=== PATIENT | male | born 1955 | race Caucasian/White ===

== ENCOUNTER 2020-08-16 08:05 | Outpatient (NON) | payer MEDICARE, SELFPAY ==
[2020-08-16 22:30] LABS: SARS-CoV-2 RNA PCR Negative
== END 2020-08-16 08:06 ==
PROVIDERS: PCP Family Medicine; Visit Provider Family Medicine
DX: Z20.828 Contact with and (suspected) exposure to other viral communicable diseases (principal)
CPT/HCPCS: 87635; C9803; U0003

== ENCOUNTER 2022-05-04 09:22 | Outpatient (CLI) | payer MEDICARE, SELFPAY ==
[2022-05-04 10:11] LABS: Hemoglobin A1C 6.3 % (<5.7)
[2022-05-04 10:12] LABS: Anion Gap 8 mmol/L (8-16); Blood Urea Nitrogen 15 mg/dL (9-20); Carbon Dioxide 27 mmol/L (22-30); Chloride 103 mmol/L (98-107); Estimated Glomerular Filt Rate > 60; Glucose 122 mg/dL (65-110); Potassium 3.9 mmol/L (3.4-5.0); Sodium 138 mmol/L (137-145)
== END 2022-05-04 09:23 | disposition home or self-care (01) ==
PROVIDERS: PCP Family Medicine; Visit Provider Physician Assistant
DX: R73.03 Prediabetes (principal)
CPT/HCPCS: 36415; 80048; 83036

== ENCOUNTER 2022-10-12 01:01 | Day surgery (SDC) | payer MEDICARE, SELFPAY ==
[2022-10-01 10:11] VITALS: BMI 31.6
--- NOTE | 2022-10-09 20:54 | PM.HPGS ---
History of Present Illness History of Present Illness Consent: Risks, benefits, and alternatives have been discussed and questions answered. Patient agrees to proceed with procedure. Chief complaint: neoplasm screening Narrative: Yony Constantino is a 67 year old male who was referred for colon cancer screening. Nine years ago he had removal of 4 polyps, 2 of which were adenomatous. Review of Systems Review of Systems: All systems reviewed & are unremarkable except as noted in HPI and below PMFSH Past Medical History Medical History Obesity Surgical History Surgical History No pertinent past surgical history Family History Family History Sibling Family history of malignant neoplasm Mother Family history of emphysema Father Family history of sarcoidosis Sibling Family history of malignant neoplasm Social History Social History Social History: Lives at home alone. . Daughter lives locally. Smoking status: Never smoker Second hand tobacco smoke exposure: No Smoking end date: 10/25/97 Alcohol intake: current Drinks per week: 6 Substance use: never Substance use type: does not use Living arrangements: with family Gender identity (if verbalized by the patient): Male Spiritual care concerns: No Agree to blood products: Yes Meds Home Medications and Allergies Home Medications Medication Instructions Recorded Confirmed Type No Home Medications 10/01/22 10/12/22 History Allergies Allergy/AdvReac Type Severity Reaction Status Date / Time No Known Allergies Allergy Verified 10/12/22 07:45 Exam Const: General: alert Orientation/consciousness: patient oriented x3 Resp: Auscultation: clear to auscultation bilaterally Cardio: Rhythm: regular rhythm GI: GI Palp: Yes Soft to palpation and No Tenderness to palpation present (GI) Neuro: General: patient oriented x3 Assessment and Plan Assessment and plan (1) Colon cancer screening: Code(s): Z12.11 - Encounter for screening for malignant neoplasm of colon Status: Acute Assessment and Plan: Colonoscopy with possible biopsy or polypectomy or cautery or injection of substances.
--- NOTE | 2022-10-11 09:27 | P.PNAN_ITS ---
Anes - Initial Pre Proc Eval Procedure: Operation Date: 10/12/22 09:00 Proposed Procedures p Screening Colonoscopy - Cam Gaffney MD Date/Time: 10/11/22 09:27 Surgeon: Cam Gaffney MD Pre Op Diagnosis: neoplasm screening Patient Data Age: 67 Gender: M Height: 1.78 m Weight: 100 kg Allergies Allergy/AdvReac Type Severity Reaction Status Date / Time No Known Allergies Allergy Verified 10/12/22 07:45 Home Medications Medication Instructions Recorded Confirmed Type No Home Medications 10/01/22 10/12/22 History Patient hx anesthesia problems: none Family hx anesthesia problems: none Results Review: All pre-operative results and documents have been reviewed as part of the pre- operative evaluation. [facility] Past Medical History Medical History (Updated 10/11/22 @ 09:28 by Giorgio Bansal MD) Obesity Surgical History Surgical History No pertinent past surgical history Family History Family History Sibling Family history of malignant neoplasm Mother Family history of emphysema Father Family history of sarcoidosis Sibling Family history of malignant neoplasm Social History Social History Social History: Lives at home alone. . Daughter lives locally. Smoking status: Never smoker Second hand tobacco smoke exposure: No Smoking end date: 10/25/97 Alcohol intake: current Drinks per week: 6 Substance use: never Substance use type: does not use Living arrangements: with family Gender identity (if verbalized by the patient): Male Spiritual care concerns: No Agree to blood products: Yes Anes - Eval Final PreProcedure Day of Procedure 10/11/22 09:27 Patient weight: obese Heart: regular rate and rhythm Lungs: clear to auscultation and normal air movement Airway: Mallampati scale class II Neurological: alert and oriented Last oral intake: >/= 8 hours ASA classification: II Emergent: no Anesthetic plan: proceed Anesthesia type and monitoring: general GIVS Results Review: All pre-operative results and documents have been reviewed as part of the pre- operative evaluation. Informed Consent: The patient's anesthetic plan and its attendant risks and benefits were discussed with the patient/family/POA. Questions were solicited and answers provided to the satisfaction of the patient/family/POA.
[2022-10-12 07:47] VITALS: BP 147/79; PULSE 80; RESP 18; TEMP 37; O2SAT 97
[2022-10-12] MEDS: LACTATED RINGERS 1,000 ML 150 ML IV CONT (07:55)
[2022-10-12 09:16] VITALS: BP 125/74; PULSE 70; RESP 18; O2SAT 98
[2022-10-12 09:26] VITALS: BP 127/74; PULSE 66; RESP 18; O2SAT 98
[2022-10-12 09:36] VITALS: BP 126/73; PULSE 61; RESP 18; O2SAT 97
== END 2022-10-12 09:45 | disposition home or self-care (01) ==
PROVIDERS: PCP Family Medicine; Visit Provider Internal Medicine Gastroenterology
PROC: 0DJD8ZZ Inspection of Lower Intestinal Tract, Via Natural or Artificial Opening Endoscopic (ICD-10-PCS; CPT 45378; principal; 2022-10-12 09:00)
DX: Z12.11 Encounter for screening for malignant neoplasm of colon (principal); K63.5 Polyp of colon; E66.9 Obesity, unspecified; Z68.33 Body mass index [BMI] 33.0-33.9, adult
CPT/HCPCS: 45380; 88305; J2001; J2704; J7120

== ENCOUNTER 2022-10-22 10:28 | Outpatient (CLI) | payer MEDICARE, SELFPAY ==
--- NOTE | ~2022-10-22 | XR_ITS ---
Supine and upright views of the abdomen Clinical history: Abdominal pain Findings: Bowel gas pattern is nonspecific. No evidence for obstruction or free air. No abnormal mass lesion or calcification is seen. Osseous structures are intact. Impression: Nonspecific bowel gas pattern. Reviewed, dictated and finalized at [facility]. [employer] Impression: Nonspecific bowel gas pattern.
== END 2022-10-22 10:29 | disposition home or self-care (01) ==
PROVIDERS: PCP Family Medicine; Visit Provider Physician Assistant
DX: R10.9 Unspecified abdominal pain (principal)
CPT/HCPCS: 74019

== ENCOUNTER 2023-05-13 02:18 | Day surgery (SDC) | payer MEDICARE, SELFPAY ==
[2023-05-11 14:26] VITALS: BMI 32.3
--- NOTE | 2023-05-11 14:42 | SUR.PREOP ---
Report to the Outpatient Waiting Room, entrance under the green pavilion located off [facility], at time 0730 on date 05/13/23. Planned Procedure Time: 0930. Time changes happen often and if your time is changed the preop area will call you the afternoon before. - You and your visitor will be asked to self-screen and do not enter if you have any COVID symptoms. - A mask is optional within the hospital at this time. Patients may have clear liquids (water, carbonated beverages, clear teas, apple juice) until 3 hours prior to surgery with a maximum of 20 ounces. - No food from midnight until time of surgery - Infants may have breast milk until 4 hours before surgery, formula 6 hours prior to surgery. - Children will be allowed to drink immediately following surgery. If applicable, please bring a bottle or sippy cup to assist with drinking. Juice, water, soda, and popsicles are readily available. For infants on formula, please bring formula the day of surgery. Pacifiers are allowed. Take the following medications with a SIP of water the morning of surgery: N/A DO NOT STOP ANY OF YOUR OTHER PRESCRIPTION MEDICATIONS PRIOR TO SURGERY ?EXCEPT THE FOLLOWING Medications to discontinue per physician N/A Date to take last dose N/A Please no make-up, nail khmer, hairspray, perfume, deodorant, or body powder the day of surgery. No jewelry (including any body piercings) or valuables the day of surgery, leave them at home. Please take a shower or bath the night before, or the morning of, surgery with an antibacterial soap. Wear comfortable, loose fitting clothing. Children are encouraged to wear pajamas. - Jewelry must be removed prior to entering the operating room. Rings and piercings that are not removed may be cut off. - The hospital will not accept responsibility for valuables. - Please leave all valuables, including medications, at home the day of surgery. If you are going home after surgery, a licensed recycling collections driver must drive you home. - NO public transportation without another adult if you receive anesthesia. - We recommend that an adult stay with you for 24 hours following discharge. - We also recommend that you do not drive, make important decision, drink alcoholic beverages, or take any drugs that were not prescribed by your health care provider for at least 24 hours after your discharge time. For Pediatric surgeries, we recommend two adults accompany the child home. Follow any additional instructions given to you from your surgeon. If you or anyone in your household have experienced Covid symptoms in the past week, please notify your surgeon or the nurse liaison at the phone number below for possible testing. Telephone instructions given to TRENA WONG and asked if any additional questions and then verbalized understanding. Patient advised to call surgeon office or pre surgery nurse liaison [phone] if any additional questions.
[2023-05-13] VITALS (7 sets, daily range): BP systolic 114–127; BP diastolic 67–74; PULSE 56–79; RESP 16–20; TEMP 36.6–37.1; O2SAT 97–100
--- NOTE | ~2023-05-13 | XR_ITS ---
EXAMINATION: XR fluoroscopy no charge DATE: 05/13/2023 09:03 INDICATION: Stricture of the bulbar urethra. TECHNIQUE: 3 intraoperative fluoroscopic views of the pelvis were obtained. I was not present. Fine-n eedle exposure time was 20 seconds. COMPARISON: None. FINDINGS: Images demonstrate a wire and dilator in the urethra. IMPRESSION: 1. Dilatation of the urethra. Reviewed, dictated and finalized at location A.
--- NOTE | 2023-05-13 04:43 | WPDHPUPDATE1 ---
History and Physical Update Update Date/Time: 05/13/23 04:43 History and Physical has been reviewed, including an updated exam of the patient. There are NO changes in the patient's condition. Risks, benefits, and alternatives have been discussed and questions answered. Patient agrees to proceed with procedure.
[2023-05-13] MEDS: LACTATED RINGERS 1,000 ML 30 ML IV CONT (07:05)
--- NOTE | 2023-05-13 08:15 | WPDANESEPPF ---
Anes - Initial Pre Proc Eval Procedure: Operation Date: 05/13/23 08:30 Proposed Procedures p Cystoscopy, Urethral Dilatation - Dudley Mendoza MD Date/Time: 05/13/23 08:15 Surgeon: Dudley Mendoza MD Pre Op Diagnosis: bulbous urethral stricture Patient Data Age: 68 Gender: M Height: 1.78 m Weight: 102 kg Last Vital Signs Temp 98.7 F 05/13/23 06:29 Pulse 66 05/13/23 06:29 Resp 20 05/13/23 06:29 BP 127/68 05/13/23 06:29 Pulse Ox 98 05/13/23 06:29 O2 Del Method Room Air 05/13/23 06:29 Allergies Allergy/AdvReac Type Severity Reaction Status Date / Time No Known Allergies Allergy Verified 05/13/23 06:57 Home Medications Medication Instructions Recorded Confirmed Type No Home Medications 05/11/23 05/13/23 History Patient hx anesthesia problems: none Family hx anesthesia problems: none Results Review: All pre-operative results and documents have been reviewed as part of the pre-operative evaluation. [facility] Past Medical History Medical History Obesity Surgical History Surgical History No pertinent past surgical history Family History Family History Sibling Family history of malignant neoplasm Mother Family history of emphysema Father Family history of sarcoidosis Sibling Family history of malignant neoplasm Social History Social History Social History: Lives at home alone. . Daughter lives locally. Smoking status: Never smoker Second hand tobacco smoke exposure: No Smoking end date: 10/25/97 Alcohol intake: current Drinks per week: 6 Substance use: never Substance use type: does not use Lack of Transportation: No Lack of Food: Never True Current Housing: I Have Housing Concerned About Future Housing: No Difficulty Paying Gas/Electric Bills: No Difficulty Paying for Meds: No Currently Unemployed: No Education: High School Diploma/GED Difficulty w/ Childcare or Family Care: No Living arrangements: alone Occupation/Education: retired Gender identity (if verbalized by the patient): Male Spiritual care concerns: No Agree to blood products: Yes Anes - Eval Final PreProcedure Day of Procedure 05/13/23 08:15 Patient weight: obese Heart: regular rate and rhythm Lungs: clear to auscultation Airway: Mallampati scale class II Neurological: alert and oriented Last oral intake: >/= 8 hours ASA classification: II Emergent: no Anesthetic plan: proceed Anesthesia type and monitoring: general LMA and standard monitoring Results Review: All pre-operative results and documents have been reviewed as part of the pre-operative evaluation. Informed Consent: The patient's anesthetic plan and its attendant risks and benefits were discussed with the patient/family/POA. Questions were solicited and answers provided to the satisfaction of the patient/family/POA.
[2023-05-13] MEDS: ceFAZolin 2 GM/D5W 50 ML 2 GM/50 ML BAG IVPB (08:39)
[2023-05-13] MEDS: LIDOCAINE HCL 2% GEL UROJET 10 ML PKG MUCOUS MEM (08:51)
--- NOTE | 2023-05-13 09:01 | W.PM.PROC2 ---
Procedure Note - Detailed Date of Procedure 05/13/23 Pre-op Diagnosis Bulbous urethral stricture Post-op Diagnosis Same Procedure Performed Cystoscopy, urethral dilatation Surgeon Dudley Mendoza MD Anesthesia General Description of Procedure patient is brought to the operative suite was prepped draped in routine sterile fashion while in dorsal lithotomy position. Cystoscopy is undertaken with a 16 F flexible cystoscope. He has a tight bulbous urethral stricture. I had a little difficulty advancing a 0.035 in glidewire through it and into the bladder but got a done without any significant trauma. I dilated the bulbous urethral stricture from 8 F to 24 F over a wire using Amplatz dilators. I placed an 18 F urethral catheter to drainage. Scopes and wires removed. The patient tolerated the procedure well. Pathology None sent Complications No immediate complications Condition Stable Disposition PACU
== END 2023-05-13 10:36 | disposition home or self-care (01) ==
PROVIDERS: PCP Family Medicine; Visit Provider Urology
PROC: 0T7D8ZZ Dilation of Urethra, Via Natural or Artificial Opening Endoscopic (ICD-10-PCS; CPT 52281; principal; 2023-05-13 08:30)
DX: N35.912 Unspecified bulbous urethral stricture, male (principal); N40.1 Benign prostatic hyperplasia with lower urinary tract symptoms; G47.30 Sleep apnea, unspecified; E66.9 Obesity, unspecified; Z68.32 Body mass index [BMI] 32.0-32.9, adult; R35.0 Frequency of micturition; R35.1 Nocturia
CPT/HCPCS: 52281; 99199; C1769; J0690; J1100; J2250; J2405; J2704; J3010; J7120

== ENCOUNTER 2024-07-27 10:57 | Outpatient (CLI) | payer MEDICARE, SELFPAY ==
--- NOTE | ~2024-07-27 | XR_ITS ---
[id number] Ordering provider: Tomasa Kasper PA-C History: . M54.2 - Cervicalgia . Comparison: None. FINDINGS: VERTEBRAL BODIES: Normal height and alignment. No visible fracture or subluxation. The dens is intact . Degenerative changes of the spine. Minimal retrolisthesis at the level of C3-C4. DISK SPACES: Well maintained. Multilevel uncovertebral joint osteoarthritic changes. Facet joint disease at the level of C4-C5. PARASPINOUS SOFT TISSUES: No prevertebral soft tissue swelling. IMPRESSION: No acute osseous abnormality cervical spine. Reviewed, dictated and finalized at location A.
== END 2024-07-27 10:58 | disposition home or self-care (01) ==
LOC: MICIMG 10:57
PROVIDERS: PCP Family Medicine; Visit Provider Student in an Organized Health Care Education/Training Program
DX: M54.2 Cervicalgia (principal)
CPT/HCPCS: 72040

== ENCOUNTER 2024-09-04 14:30 | Outpatient (RCR) | payer MEDICARE, SELFPAY ==
--- NOTE | 2024-08-04 15:22 | OPREHPOC ---
Outpatient Therapy Plan of Care This is a Multidisciplinary Plan of Care that may contain components documented by all disciplines (PT, OT, and ST.) PT Problem 1 PT Problem #1 Knowledge Deficit PT Goal 1 Goal / Goal Update *indep with HEP * correct position and posture with HEP Target Visit 6 PT Problem 2 PT Problem #2 Pain PT Goal 1 Goal / Goal Update 1* pt report pain at worst rating of 6/10 2* self assessment Neck Disability Index rating of 16% limitation in activity level 3* pt report able to sleep 3 hours at time Target Visit 6 PT Problem 3 PT Problem #3 Impaired Flexibility PT Goal 1 Goal / Goal Update improve cervical and pec flexibility to improve position and spinal alignment. 1* no pain with cervical rotation to R 2* active cervical rotation to R 50' 3* increase anterior shoulder/pec length-- pt stand with GH joint below ear Target Visit 6 PT Problem 4 PT Problem #4 Impaired Strength PT Goal 1 Goal / Goal Update *increase strength of cervical and scapular areas, to improve spinal position and alignment 1* pt perform 20 reps of scapular strengthening exercises in standing and prone positions Target Visit 6
--- NOTE | 2024-08-04 15:22 | PTOPEVAL1 ---
Assessment and note entered by Eloise Sawant, PT Evaluation Information Assessment Status Evaluation ICD-10 Condition Codes (PT) Cervicalgia M54.2 Onset May 2024 Subjective Information started with stiff neck in May, has gotten worse since then; have new script for steroid and meloxicam- helping some; cervical xray: degenerative changes at C 4-5 facet joint and minimal retrolisthesis C 3-4; Activity: retired; R handed; Reported Pain Level Pain Score Self Report Additional Pain Score Comments pain range in the past week: 1-10/10- sharp pain to 10 last few seconds only; dull pain, R side neck, upper traps and R scapula increase pain: riding motorcycle; working on computer 5-10 minutes decrease pain: change positions, meloxicam, with sleeping, awaken due to neck pain about every 1-2 hours; does not report any headaches; Assessment PT Clinical Summary Yony has the diagnosis of cervicalgia. He reports onset in May and no history of neck or shoulder problems. He is R handed and pain increases with use of mouse and computer work and with riding his motorcycle. Self assessment Neck Disablity index rating of 24% limitation in activity level. With the evaluation: he has poor standing position of neck and shoulder/scapula, with rounding of shoulders and elevation of R shoulder; cervical rotation to the R is slightly limited and increase pain; no pain with shoulder motions. He has weakness over scapular/posterior shoulder complex. Skilled PT is indicated for modalities to decrease pain and spasms; therapeutic exercises to stretch anterior shoulder musculature and strengthening cervical-scapular area for improved posture and position of spine, with education for HEP and posture. Plan of Care Interventions Electrical Stimulation,Hot Pack/Cold Pack,Manual Therapy,Patient Education,Therapeutic Activities,Therapeutic Exercise,Ultrasound,Other Other Interventions taping PT Services Indicated Yes Treatment Frequency and 1-2x/wk for 6visits Duration These treatments will address the objective and functional deficits as defined above. The patient will be advanced safely and appropriately in order for the patient to progress towards his/her prior level of function. Additional exercises will be introduced and as well as a comprehensive home exercise program upon discharge, if needed, ?to ensure carryover of functional gains achieved in the clinic. This treatment plan has been reviewed and agreement upon by the patient.
--- NOTE | 2024-09-04 15:13 | PTOPDC ---
Assessment and note entered by Eloise Sawant, PT Discharge Report Assessment Status Discharge ICD-10 Condition Codes (PT) Cervicalgia M54.2 Onset May 2024 Subjective Information have not been using CPAP since June-- feel like strap may be hurting my neck; doing exercises at home; Reported Pain Level Pain Score Self Report Additional Pain Score Comments no pain in the past week in his neck; no troubles with using the computer; with sleeping, 1-2 hours at a time; not sure why wake up--breathing, change positions; do not awaken due to neck pain; also have back pain when stand up straight too long; Assessment PT Clinical Summary Yony has received 6 PT sessions. Compared to the initial evaluation: pain has decreased from 1-10/10 to 0/10, but reports neck ache and tight; self assessment with Neck Disability Index from 24% to 8% limitation in activity level; increase cervical rotation R and L active motion and no longer painful; increase [id number]-[id number] strength; education for HEP and posture. He has improved posture awareness. The goals were partially met. Discharge PT services. He is to continue to perform his HEP and monitor his posture. Plan of Care PT Services Indicated No
== END 2024-09-05 09:17 | disposition home or self-care (01) ==
LOC: ANHPT 14:30
PROVIDERS: PCP Family Medicine; Visit Provider Student in an Organized Health Care Education/Training Program
DX: M54.2 Cervicalgia (principal)
CPT/HCPCS: 97110; 97161; 97530

== ENCOUNTER 2025-07-03 10:12 | Outpatient (CLI) | payer MEDICARE, SELFPAY ==
--- NOTE | ~2025-07-03 | XR_ITS ---
XR lumbar spine 2-3V Indication: M54.50 - Low back pain, unspecified Comparison: None Findings: Grade 1 retrolisthesis of L2 on L3 L3 on L4, no fracture identified. Severe loss of disc height at L3-4 with moderate loss of disc height at the remaining levels. Soft tissues unremarkable Impression: No acute abnormality. Reviewed, dictated and finalized at location A. Impression: No acute abnormality.
== END 2025-07-03 10:13 | disposition home or self-care (01) ==
PROVIDERS: PCP Family Medicine; Visit Provider Student in an Organized Health Care Education/Training Program
DX: M54.50 Low back pain, unspecified (principal)
CPT/HCPCS: 72100

== ENCOUNTER 2025-07-12 18:21 | Emergency (ER) | payer MEDICARE, SELFPAY ==
[2025-07-12] VITALS (11 sets, daily range): BP systolic 117–152; BP diastolic 61–106; PULSE 54–95; RESP 12–18; TEMP 37.3; O2SAT 92–98
--- NOTE | ~2025-07-12 | CT_ITS ---
EXAMINATION: CTA chest abdomen pelvis DATE: 07/12/2025 22:56 INDICATION: Left low back pain. TECHNIQUE: Computed tomographic angiography (CTA) of the chest, abdomen, and pelvis was performed with 100 mL Omnipaque-350 intravenous contrast. Automated exposure control and iterative reconstruction technique were employed. The dose- length product was 1239.26 mGy-cm. Maximum intensity projection 3D- reconstructions of the aorta and other arteries were constructed by the technologist on a separate workstation. COMPARISON: None. FINDINGS: CHEST CTA: The lungs demonstrate mild dependent atelectasis. A calcified left lung nodule is consistent with old granulomatous disease. No pleural effusion. The heart size is normal. There are coronary artery calcifications. No pericardial effusion. There is no pulmonary embolus. Aortic atherosclerosis is noted. There are bridging endplate osteophytes at multiple levels in the spine, consistent with diffuse idiopathic skeletal hyperostosis (DISH). There is mild chronic anterior wedging of multiple vertebral bodies. ABDOMEN AND PELVIS CTA: The liver and gallbladder are normal. Calcifications in the spleen are consistent with old granulomatous disease. The pancreas and right adrenal gland are normal. 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 Right kidney is normal. There are cysts in l eft kidney measuring up to 6.9 cm. The prostate is moderately enlarged. The appendix is normal. There are no dilated loops of bowel. There are no pathologically enlarged lymph nodes. There is no free intraperitoneal fluid. There are diverticula of the bladder. There is prominent fat in left inguinal ca nal that may be a hernia. There is severe lumbar spondylosis. IMPRESSION: 1. Aortic atherosclerosis. No aneurysm or dissection. Reviewed, dictated and finalized at location E.
--- NOTE | 2025-07-12 19:42 | PC.NURSE ---
and patient refusing to sit in waiting room instead of intake area-its hot and we don't want to be that close to people
[2025-07-12] MEDS: MORPHINE SULFATE (*CRX) 4 MG/ML INJ IV PUSH (21:28)
[2025-07-12 21:37] LABS: Hematocrit 44.5 % (42.0-52.0); Hemoglobin 14.1 g/dL (14.0-18.0); Immature Granulocyte Percent A 0.2 % (0-0.5); Lymphocytes Absolute Auto 1.37 K/mm3 (0.9-3.2); Mean Corpuscular HGB Conc 31.7 g/dl (32-36); Mean Corpuscular Hemoglobin 28.2 pg (26-34); Mean Corpuscular Volume 89.0 fl (80-100); Nucleated Red Blood Cells Absolute Auto 0.000 K/mm3 (0.0-0.012); Nucleated Red Blood Cells Perc 0.0 % (0.0-0.2); Platelet Count Result 294 k/mm3 (150-375); Red Blood Count 5.00 M/mm3 (4.6-6.20); White Blood Count 8.0 K/mm3 (4.5-10.0)
[2025-07-12 21:51] LABS: Alanine Aminotransferase 27 U/L (6-50); Albumin Level 4.1 g/dL (3.5-5.1); Alkaline Phosphatase 79 U/L (38-126); Anion Gap 7 mmol/L (4-12); Aspartate Amino Transferase 31 U/L (17-59); Bilirubin,Total 0.5 mg/dL (0.2-1.3); Blood Urea Nitrogen 14 mg/dL (9-20); Calcium 8.9 mg/dL (8.4-10.2); Carbon Dioxide 25 mmol/L (22-30); Chloride 106 mmol/L (98-107); Estimated Glomerular Filt Rate > 60; Glucose 106 mg/dL (65-110); Potassium 4.0 mmol/L (3.4-5.0); Sodium 138 mmol/L (137-145); Total Protein 7.4 g/dL (6.3-8.2)
--- NOTE | 2025-07-12 22:35 | PC.NURSE ---
Received a call stating that pt is in significant amt of pain trying to get to CT table. Requested additional pain meds from Dr Kamara and delivered in CT. Pt able to be slid over with slide board for testing.
[2025-07-12] MEDS: HYDROmorphone HCL INJ (*CRX) 1 MG/ML SYR 0.5 MG IV PUSH (22:37)
--- NOTE | 2025-07-12 23:16 | PC.NURSE ---
Received report from VINAY García for cont. of care. Pt lying on stretcher, respiration even and unlabored. Pt made aware need urine sample, provided with urinal and call light within reach.
[2025-07-13 00:02] VITALS: BP 135/72; PULSE 62; RESP 18; O2SAT 97
--- NOTE | 2025-07-13 00:21 | ED_ITS ---
HPI - Back Pain/Injury General Chief Complaint: Back Pain/Injury Stated Complaint: back pain Time Seen by Provider: 07/12/25 20:55 History of Present Illness HPI Narrative: Patient has history of chronic back pain was told it was likely arthritis however around 5:00 p.m. today he started having severe pain to his left lower back. No focal numbness or weakness to his legs. Related Data Allergies Allergy/AdvReac Type Severity Reaction Status Date / Time No Known Allergies Allergy Verified 07/12/25 21:16 Review of Systems 2 Review of Systems: All systems reviewed & are unremarkable except as noted in HPI and below PMFSH Past Medical History Medical History Obesity Surgical History Surgical History No pertinent past surgical history Family History Family History Sibling Family history of malignant neoplasm Mother Family history of emphysema Father Family history of sarcoidosis Sibling Family history of malignant neoplasm Social History Social History Social History: Lives at home alone. . Daughter lives locally. Smoking status: Never smoker Second hand tobacco smoke exposure: No Smoking end date: 10/25/97 Alcohol intake: current Drinks per week: 6 Substance use: never Substance use type: does not use Lack of Transportation: No Lack of Food: Never True Current Housing: I Have Housing Concerned About Future Housing: No Difficulty Paying Gas/Electric Bills: No Difficulty Paying for Meds: No Currently Unemployed: No Education: High School Diploma/GED Difficulty w/ Childcare or Family Care: No Living arrangements: alone Occupation/Education: retired Gender identity (if verbalized by the patient): Male Spiritual care concerns: No Agree to blood products: Yes Exam 2 Narrative: EXAMINATION OF ORGAN SYSTEMS/BODY AREAS: Constitutional: Vital signs per nursing GENERAL: Appears uncomfortable HEAD: Normal with no signs of head trauma. EYES: EOMI, conjunctiva normal ENT: Hearing grossly intact LUNGS: Nonlabored breathing. HEART: [Regular rate and rhythm], normal radial and DP pulses bilaterally ABD: [Soft], [nontender to palpation] EXT: Normal range of motion SKIN: [No rashes or lesions.] NEURO: [Alert and oriented x 3. No gross focal sensory or strength deficits.] PSYCH: Normal affect Course Vital Signs Vital signs: Vital Signs Temperature 99.1 F 07/12/25 18:26 Pulse Rate 60 07/12/25 18:26 Respiratory Rate 18 07/12/25 18:26 Blood Pressure 131/61 07/12/25 18:26 Pulse Oximetry 98 07/12/25 18: Temperature 99.1 F 07/12/25 18:26 Pulse Rate 62 07/13/25 00:02 Respiratory Rate 18 07/13/25 00:02 Blood Pressure 135/72 07/13/25 00:02 Pulse Oximetry 97 07/13/25 00:02 MDM - Back Pain/Injury MDM Narrative Medical decision making narrative: ED COURSE AND MEDICAL DECISION MAKIN-year-old male with acute on chronic back pain. Normal motor and sensory exam. Patient unable to ambulate due to pain. No evidence of acute cord compression, osteomyelitis/discitis or cauda equina without saddle anesthesia, urinary retention/incontinence, numbness/tingling in lower extremities, fever, history of IV drug use, cancer or immunosuppression. However given this side onset and severe pain I will also want to rule out a dissection. Morphine and then Dilaudid given for symptomatic relief. CT obtained. CTA thankfully negative for acute fractures, or dissection, does show possible UTI. Urinalysis does show UTI so I will start him on antibiotics. Discussed with patient and daughter. Prescription sent to pharmacy. I will also trial him on course of steroid with muscle relaxants, paper prescription provided for Robaxin and prednisone. They are to follow up with his doctor and they already have pain management follow-up. He is instructed to return if his symptoms worsen. Lab Data 07/12/25 21:31 07/12/25 21:31 Labs: Lab Results 07/12/25 07/13/25 Range/Units 21:31 00:27 WBC 8.0 (4.5-10.0) K/mm3 RBC 5.00 (4.6-6.20) M/mm3 Hgb 14.1 (14.0-18.0) g/dL Hct 44.5 (42.0-52.0) % MCV 89.0 (80-100) fl MCH 28.2 (26-34) pg MCHC 31.7 L (32-36) g/dl RDW 15.1 H (11.5-14.5) % Plt Count 294 (150-375) k/mm3 MPV 10.5 H (7.4-10.4) fl Immature Gran % (Auto) 0.2 (0-0.5) % Neut % (Auto) 71.1 (45.5-73.1) % Lymph % (Auto) 17.1 L (18.3-44.2) % Love % (Auto) 8.6 H (2.6-8.5) % Eos % (Auto) 2.4 (0-4.4) % Baso % (Auto) 0.6 (0.2-1.2) % Lymph # (Auto) 1.37 (0.9-3.2) K/mm3 Love # (Auto) 0.7 H (0.1-0.6) K/mm3 Eos # (Auto) 0.2 (0-0.3) K/mm3 Baso # (Auto) 0.1 (0.0-0.1) K/mm3 Abs Immat Gran (auto) 0.02 (0.00-0.031) K/mm3 Absolute Neuts (auto) 5.7 (1.3-6.7) K/mm3 Absolute Nucleated RBC 0.000 (0.0-0.012) K/mm3 Nucleated RBC % 0.0 (0.0-0.2) % Sodium 138 (137-145) mmol/L Potassium 4.0 (3.4-5.0) mmol/L Chloride 106 (98-107) mmol/L Carbon Dioxide 25 (22-30) mmol/L Anion Gap 7 (4-12) mmol/L BUN 14 (9-20) mg/dL Creatinine 1.04 (0.7-1.3) mg/dL Estim Creat Clear Calc Not Reportable Estimated GFR > 60 (59 - ) Glucose 106 (65-110) mg/dL Calcium 8.9 (8.4-10.2) mg/dL Total Bilirubin 0.5 (0.2-1.3) mg/dL AST 31 (17-59) U/L ALT 27 (6-50) U/L Alkaline Phosphatase 79 (38-126) U/L Total Protein 7.4 (6.3-8.2) g/dL Albumin 4.1 (3.5-5.1) g/dL Urine Color Yellow (Yellow) Urine Appearance Cloudy H (Clear) Urine pH 6.0 (5.0-9.0) Ur Specific [place] > 1.045 H (1.001-1.035) Urine Protein Trace (Negative) mg/dL Urine Glucose (UA) Negative (Negative) mg/dL Urine Ketones Negative (Negative) mg/dL Ur Blood (Man) Non-hemolyzed trace (Negative) Urine Nitrate Positive H (Negative) Urine Bilirubin Negative (Negative) Urine Urobilinogen 0.2 (<2.0) mg/dL Add Ur Microanalysis Reviewed Leukocyte Esterase Rfl 2+ H (Negative) CHARU/UL Urine RBC 3-5 H (0-2) /hpf Urine WBC >100 H (0-3) /hpf Ur Squamous Epith Cells None seen (Few) /hpf Urine Bacteria 4+ H /hpf Urine Casts 0-2 Discharge Plan Discharge Clinical Impression: Low back pain, Acute UTI Patient Disposition: Home Condition: Improved Instructions: Antibiotic Form, Urinary Tract Infection in Men (ED), Acute Low Back Pain (ED) Additional Instructions: Follow-up with your PCP and pain management, take antibiotics as prescribed and the pain medicine. Patient Language: Slovenian Prescriptions: New ciprofloxacin HCl 500 mg tablet 500 mg PO Q12H 7 Days Qty: 14 0RF No Action terbinafine HCl 250 mg tablet 250 mg PO DAILY Qty: 90 0RF Follow-up/Referrals: Annie Lopes MD [Primary Care Provider, Family Practice]
[2025-07-13 00:44] LABS: Add Urine Microscopic? YES; Appearance Urine Cloudy (Clear); Glucose Urine UA Negative (Negative); Leukocyte Esterase Ur 2+ LEU/UL (Negative); Need Manual Microscopic Reviewed; Nitrate Urine Positive (Negative); Non Pathogenic Casts 0-2; Specific Grav Ur > 1.045 (1.001-1.035)
== END 2025-07-13 03:59 | disposition home or self-care (01) ==
PROVIDERS: Emergency Provider Emergency Medicine; PCP Family Medicine
DX: N39.0 Urinary tract infection, site not specified (principal); M54.50 Low back pain, unspecified; G89.29 Other chronic pain; Z87.891 Personal history of nicotine dependence; I70.0 Atherosclerosis of aorta
CPT/HCPCS: 36415; 71275; 74174; 80053; 81001; 85025; 87077; 87086; 87186; 96374; 96375; 99284; J1171; J2270; J3360; J7512; Q9967

== ENCOUNTER 2025-10-16 09:15 | Outpatient (RCR) | payer MEDICARE, SELFPAY | END 2025-10-22 12:51 | disposition home or self-care (01) | LOC: ANHDMC 09:15 | PROVIDERS: PCP Family Medicine Adolescent Medicine; Visit Provider Student in an Organized Health Care Education/Training Program | DX: E11.9 Type 2 diabetes mellitus without complications (principal); Z71.89 Other specified counseling | CPT/HCPCS: G0108 ==